=== PATIENT | female | born 1995 | race Caucasian/White ===

== ENCOUNTER 2018-10-24 03:52 | Emergency (ER) | payer SELFPAY ==
[~2018-10-24] VITALS: Ht 165.1 cm; Wt 50.6 kg
[2018-10-24 03:55] VITALS: BP 130/74
== END 2018-10-24 04:56 | disposition home or self-care (01) ==
LOC: ED 04:50
DX: R68.84 Jaw pain (principal); R51 Headache
CPT/HCPCS: 99283